=== PATIENT | male | born 1970 | race Caucasian/White ===

== ENCOUNTER 2017-10-22 15:22 | Emergency (ER) | payer OTHER ==
[2017-10-22 15:57] LABS: Urine Appearance Clear; Urine Blood Negative (Negative); Urine Color Amber; Urine Ketones 1+ (Negative); Urine Protein 2+(100 mg/dL) (Negative); Urine Specific Gravity 1.046 (1.010-1.030); Urine Urobilinogen Negative (Negative)
[2017-10-22] MEDS ORDERED: Ondansetron INJ* 2 MG/ML VIAL IV ONE (16:09)
[2017-10-22] MEDS ORDERED: NS 0.9% 1000 ML* 1,000 ML IV ONE (16:09)
[2017-10-22] MEDS ORDERED: Ketorolac INJ* 30 MG/ML 1 ML VIAL IV PUSH ONE (16:10)
[2017-10-22] MEDS ORDERED: Morphine INJ* 4 MG/ML 1 ML SYRINGE (NEW SYRINGE VERSION) IV ONE (16:10)
--- NOTE | 2017-10-22 16:28 | ED ---
GI/ HPI - HPI Summary HPI Summary: 47-year-old male presents with bilateral flank pain today. He states the left is worst than the right. He has a history of kidney stones and states that it feels similar. He states that the pain has been radiated his pelvis. He states when he urinates he has pain in his testicles. He hasn't notice any hematuria or dysuria. He admits to nausea but denies any vomiting. Pain is cramp like and comes in waves. He has no medical conditions. He does not have a urologist. He denies any chest pain or SOB. - History of Current Complaint Chief Complaint: EDFlankPain Time Seen by Provider: 10/22/17 16:03 Stated Complaint: POSSIBLE KIDNEY STONE Pain Intensity: 10 - Allergy/Home Medications Allergies/Adverse Reactions: Allergies Allergy/AdvReac Type Severity Reaction Status Date / Time No Known Allergies Allergy Verified 10/22/17 15:27 PMH/Surg Hx/FS Hx/Imm Hx Endocrine/Hematology History: Denies: Hx Anticoagulant Therapy Cardiovascular History: Denies: Hx Myocardial Infarction - Surgical History Surgery Procedure, Year, and Place: HERNIA REPAIR - Immunization History Date of Tetanus Vaccine: 2015 Date of Influenza Vaccine: 2017 Infectious Disease History: No Infectious Disease History: Denies: Traveled Outside the [place] in Last 30 Days - Family History Known Family History: Negative: Renal Disease - Social History Alcohol Use: Occasionally Hx Substance Use: No Substance Use Type: Reports: None Hx Tobacco Use: No Smoking Status (MU): Never Smoked Tobacco Review of Systems Negative: Fever Negative: Chest Pain Negative: Shortness Of Breath Positive: Abdominal Pain, Nausea. Negative: Vomiting, Diarrhea Positive: flank pain All Other Systems Reviewed And Are Negative: Yes Physical Exam Triage Information Reviewed: Yes Vital Signs On Initial Exam: Initial Vitals Temp Pulse Resp BP Pulse Ox 98.3 F 65 18 128/86 100 10/22/17 15:25 10/22/17 15:25 10/22/17 15:25 10/22/17 15:25 10/22/17 15:25 Vital Signs Reviewed: Yes Appearance: Positive: Well-Appearing Skin: Positive: Warm, Dry Head/Face: Positive: Normal Head/Face Inspection Eyes: Positive: Normal, Conjunctiva Clear Respiratory/Lung Sounds: Positive: Clear to Auscultation, Breath Sounds Present Cardiovascular: Positive: Normal, RRR Abdomen Description: Positive: Nontender, Soft, CVA Tenderness (R), CVA Tenderness (L), Other: - tenderness lower back Bowel Sounds: Positive: Present Musculoskeletal: Positive: Strength/ROM Intact - back, Other - good pulses, sensation grossly intact Neurological: Positive: Normal Psychiatric: Positive: Normal Diagnostics - Vital Signs Vital Signs Temp Pulse Resp BP Pulse Ox 10/22/17 16:10 53 100 10/22/17 15:25 98.3 F 65 18 128/86 100 - Laboratory Lab Results: Lab Results 10/22/17 Range/Units 15:39 Urine Color [place] Urine Appearance Clear Urine pH 5.0 (5-9) Ur Specific [place] 1.046 H (1.010-1.030) Urine Protein 2+(100 mg/dl) H (Negative) Urine Ketones 1+ H (Negative) Urine Blood Negative (Negative) Urine Nitrate Negative (Negative) Urine Bilirubin Negative (Negative) Urine Urobilinogen Negative (Negative) Ur Leukocyte Esterase Negative (Negative) Urine WBC (Auto) Trace(0-5/hpf) (Absent) Urine RBC (Auto) 2+(6-10/hpf) H (Absent) Urine Bacteria Absent (Absent) Urine Glucose 2+(150 mg/dl) H (Negative) Urine Ascorbic Acid * H (Negative) Result Diagrams: 10/22/17 16:27 10/22/17 16:27 Lab Statement: Any lab studies that have been ordered have been reviewed, and results considered in the medical decision making process. - CT abd CT Interpretation: Positive (See Comments) - IMPRESSION: There is moderate degree of left hydronephrosis with a 2 mm calculus at the left ureterovesicular junction. CT Interpretation Completed By: Radiologist NAOMI Course/Dx - Course Course Of Treatment: 47-year-old male presents with bilateral flank pain today. He states the left is worst than the right. He has a history of kidney stones and states that it feels similar. He states that the pain has been radiated his pelvis. He states when he urinates he has pain in his testicles. He hasn't notice any hematuria or dysuria. He admits to nausea but denies any vomiting. Pain is cramp like and comes in waves. He has no medical conditions. He does not have a urologist. on exam has bilateral CVA tenderness. Nontender abdomen. Tenderness lower back. Urine shows blood. labs slight elevated wbc at 11. Cr similiar to previous. CT abd left urethral stone. will discharge with pain medication and flomax. will give referral for urology. patient understand and agrees with plan. - Diagnoses Differential Diagnoses - Male: Pyelonephritis, Ureteral Calculi, Urinary Tract Infection, Other - back sprain Provider Diagnoses: Left ureteral stone Discharge - Discharge Plan Condition: Good Disposition: HOME Prescriptions: Ondansetron ODT TAB* [Zofran 4 MG Odt TAB*] 4 mg PO Q6H PRN #12 tab.odt PRN Reason: Nausea oxyCODONE/Acetamin 5/325 MG* [Percocet 5/325 TAB*] 1 tab PO Q6H PRN #18 tab MDD 4 PRN Reason: Pain Tamsulosin CAP* [Flomax CAP*] 0.4 mg PO DAILY #7 cap Patient Education Materials: Kidney Stones (ED) Referrals: Marco WILCOX,Gildardo Jacinto [Primary Care Provider] - Saúl Garcia MD [Medical Doctor] - Additional Instructions: Take ibuprofen every 6 hours and narcotic as needed every 6 hours Take Zofran every 6 hours for nausea as needed Take Flomax daily starting tomorrow, first dose given in ED until stone expelled , make sure stand up slowly Follow up with urology, call office tomorrow for appointment Return to ED if unable to manage pain at home, develop fever, or any new or worsening symptoms
[2017-10-22 16:42] LABS: ABS Basophils 0 10^3/ul (0-0.2); ABS Eosinophils 0 10^3/ul (0-0.6); ABS Lymphocytes 1.3 10^3/ul (1.0-4.8); ABS Monocytes 0.5 10^3/ul (0-0.8); ABS Neutrophils 9.8 10^3/ul (1.5-7.7); ABS Nucleated RBC 0 10^3/ul; Eosinophil % 0.1 % (0-6); Hematocrit 42 % (42-52); Hemoglobin 14.5 g/dl (14.0-18.0); Lymphocyte % 11.3 % (25-47); Mean Corpuscular HGB Conc 35 g/dl (31-36); Mean Corpuscular Hemoglobin 31 pg (27-31); Mean Corpuscular Volume 88 fL (80-94); Mean Platelet Volume 8 um3 (7.4-10.4); Nucleated Red Blood Cells % 0.1; Platelet Count 248 10^3/ul (150-450); Red Blood Count 4.77 10^6/ul (4.0-5.4); Red Cell Distribution Width 13 % (10.5-15); White Blood Count 11.7 10^3/ul (3.5-10.8)
[2017-10-22 16:54] LABS: EGFR Non-African American 55.5 (>60)
[2017-10-22] MEDS ORDERED: HYDROmorphone INJ* 1 MG/ML CARPUJECT SYRINGE IV SLOW PU ONE (17:14)
--- NOTE | 2017-10-22 17:21 | RAD ---
Indication: Bilateral flank pain. CT of the abdomen and pelvis was performed without oral or IV contrast administration. Coronal and sagittal reconstructed images were obtained. Lung bases demonstrate no pleural fluid, nodules or masses. Heart is normal size without evidence of pericardial effusion. Liver is normal in size. No focal lesions or intrahepatic ductal dilatation is noted. The spleen is normal in size. The pancreas demonstrates no mass or pancreatic duct dilatation. The common duct is not dilated. No adrenal masses are noted. The kidneys demonstrate mild left hydronephrosis and hydroureter. There is a tiny 2 mm calculi at the left ureterovesicular junction. The right ureter is otherwise unremarkable. No hydronephrosis of the right kidney is noted. No retroperitoneal lymphadenopathy is noted. No dilated loops of bowel are noted. The colon is filled with stool. The appendix is visualized and is unremarkable. The urinary bladder is distended. The prostate is unremarkable. No hernias are definitively identified. IMPRESSION: There is moderate degree of left hydronephrosis with a 2 mm calculus at the left ureterovesicular junction.
[2017-10-22] MEDS ORDERED: Tamsulosin CAP* 0.4 MG PO ONE (17:31)
[2017-10-22] MEDS ORDERED: O ndansetron ODT 4MG 2TAB PRPK 4 MG PAK PO ONE (18:17)
[2017-10-22 19:57] VITALS: BP 128/74
== END 2017-10-22 19:00 | disposition home or self-care (01) ==
LOC: ED 15:22
DX: N13.2 Hydronephrosis with renal and ureteral calculous obstruction (principal); Z87.442 Personal history of urinary calculi
CPT/HCPCS: 36415; 74176; 80053; 81003; 81015; 83690; 85025; 86141; 96361; 96374; 96375; 99284; A9270-GY; J1170; J1885; J2270; J2405